=== PATIENT | female | born 1985 | race Two or more races ===

== ENCOUNTER 2018-11-20 19:23 | Emergency (ER) | payer SELFPAY ==
[~2018-11-20] VITALS: Ht 149.9 cm; Wt 74.4 kg
--- NOTE | 2018-11-20 19:48 | PHYS DOC ---
Past Medical History Past Medical History: No Pertinent History (AKILAH GAN APRN) Past Surgical History: No Surgical History (AKILAH GAN APRN) Alcohol Use: None Drug Use: None (AKILAH GAN APRN) Adult General Chief Complaint Chief Complaint: ABDOMINAL PAIN IN HPI HPI Patient is a 33 year old female who presents with [vaginal bleeding and . Patient reports she is 16 weeks , today she started to have a moderate amount of vaginal bleeding, reports it is significant, but worsened today. Reports initially started off with a little bit of blood on paper issue at this morning, it has progressed to more sensitive pertinent. States she doesn't history of hypertension, and worsen her , states she has been out of her blood pressure medicines for the past 2 weeks. Reports she's had pressure medicines for the past several years does have a follow-up with her [employer] [facility] on Wednesday. Also reports some increased urinary frequency, urgency, discomfort when urinating. Patient is . Follows up with [facility] in [place].] (AKILAH GAN APRN) Review of Systems Review of Systems Constitutional: Denies fever or chills [] Eyes: Denies change in visual acuity, redness, or eye pain [] HENT: Denies nasal congestion or sore throat [] Respiratory: Denies cough or shortness of breath [] Cardiovascular: No additional information not addressed in HPI [] GI: Denies abdominal pain, nausea, vomiting, bloody stools or diarrhea [] : Reports dysuria and hematuria [] Musculoskeletal: Denies back pain or joint pain [] Integument: Denies rash or skin lesions [] Neurologic: Denies headache, focal weakness or sensory changes [] Endocrine: Denies polyuria or polydipsia [] All other systems were reviewed and found to be within normal limits, except as documented in this note. (AKILAH GAN APRN) Allergies Allergies Allergies Coded Allergies Type Severity Reaction Last Updated Verified No Known Drug Allergies 04/15/15 No (GEORGE FONTENOT MD) Physical Exam Physical Exam Constitutional: Well developed, well nourished, no acute distress, non-toxic appearance. [] HENT: Normocephalic, atraumatic, bilateral external ears normal, oropharynx moist, no oral exudates, nose normal. [] Eyes: PERRLA, EOMI, conjunctiva normal, no discharge. [] Neck: Normal range of motion, no tenderness, supple, no stridor. [] Cardiovascular:Heart rate regular rhythm, no murmur [] Lungs & Thorax: Bilateral breath sounds clear to auscultation [] Abdomen: Bowel sounds normal, soft, no tenderness, no masses, no pulsatile masses. [] Skin: Warm, dry, no erythema, no rash. [] Back: No tenderness, no CVA tenderness. [] Extremities: No tenderness, no cyanosis, no clubbing, ROM intact, no edema. [] Neurologic: Alert and oriented X 3, normal motor function, normal sensory function, no focal deficits noted. [] Psychologic: Affect normal, judgement normal, mood normal. 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 Pelvic vault clear, no blood noted. Cervix noted closed without bleeding. No tenderness noted Straight cath urine noted, with moderate amount of blood noted (AKILAH GAN APRN) Current Patient Data Vital Signs Vital Signs Date Time Temp Pulse Resp B/P (MAP) Pulse Ox O2 Delivery O2 Flow Rate FiO2 11/20/18 21:00 81 16 129/69 (89) 99 Room Air 11/20/18 19:25 98.5 98.5 (GEORGE FONTENOT MD) Lab Values Laboratory Tests Test 11/20/18 19:39 11/20/18 21:35 White Blood Count 14.3 x10^3/uL (4.0-11.0) H Red Blood Count 4.79 x10^6/uL (3.50-5.40) Hemoglobin 13.6 g/dL (12.0-15.5) Hematocrit 39.2 % (36.0-47.0) Mean Corpuscular Volume 82 fL (79-100) Mean Corpuscular Hemoglobin 28 pg (25-35) Mean Corpuscular Hemoglobin Concent 35 g/dL (31-37) Red Cell Distribution Width 14.3 % (11.5-14.5) Platelet Count 293 x10^3/uL (140-400) Neutrophils (%) (Auto) 81 % (31-73) H Lymphocytes (%) (Auto) 14 % (24-48) L Monocytes (%) (Auto) 4 % (0-9) Eosinophils (%) (Auto) 1 % (0-3) Basophils (%) (Auto) 1 % (0-3) Neutrophils # (Auto) 11.5 x10^3/uL (1.8-7.7) H Lymphocytes # (Auto) 2.0 x10^3/uL (1.0-4.8) Monocytes # (Auto) 0.6 x10^3/uL (0.0-1.1) Eosinophils # (Auto) 0.1 x10^3/uL (0.0-0.7) Basophils # (Auto) 0.1 x10^3/uL (0.0-0.2) Urine Collection Type Unknown U cath Urine Color Brown Red Urine Clarity Turbid Turbid Urine pH 7.0 Urine Specific [place]patoi 1.015 Urine Protein mg/dL (NEG-TRACE) 100 mg/dL (NEG-TRACE) Urine Glucose (UA) mg/dL (NEG) Negative mg/dL (NEG) Urine Ketones (Stick) mg/dL (NEG) Trace mg/dL (NEG) Urine Blood (NEG) Large (NEG) Urine Nitrite (NEG) Positive (NEG) Urine Bilirubin (NEG) Negative (NEG) Urine Urobilinogen Dipstick mg/dL (0.2 mg/dL) 1.0 mg/dL (0.2 mg/dL) Urine Leukocyte Esterase (NEG) Moderate (NEG) Urine RBC Tntc /HPF (0-2) Tntc /HPF (0-2) Urine WBC >40 /HPF (0-4) 1-4 /HPF (0-4) Urine Squamous Epithelial Cells Few /LPF Urine Bacteria 0 /HPF (0-FEW) 0 /HPF (0-FEW) Urine Mucus Mod /LPF Maternal Serum HCG Beta Subunit 77428 mIU/mL (0-5) H Sodium Level 142 mmol/L (136-145) Potassium Level 3.4 mmol/L (3.5-5.1) L Chloride Level 105 mmol/L (98-107) Carbon Dioxide Level 23 mmol/L (21-32) Anion Gap 14 (6-14) Blood Urea Nitrogen 7 mg/dL (7-20) Creatinine 0.9 mg/dL (0.6-1.0) Estimated GFR (Cockcroft-Gault) 71.7 BUN/Creatinine Ratio 8 (6-20) Glucose Level 135 mg/dL (70-99) H Calcium Level 9.4 mg/dL (8.5-10.1) Total Bilirubin 0.2 mg/dL (0.2-1.0) Aspartate Amino Transferase (AST) 13 U/L (15-37) L Alanine Aminotransferase (ALT) 23 U/L (14-59) Alkaline Phosphatase 61 U/L (46-116) Total Protein 7.1 g/dL (6.4-8.2) Albumin 3.3 g/dL (3.4-5.0) L Albumin/Globulin Ratio 0.9 (1.0-1.7) L Urine Amorphous Sediment Present /HPF Laboratory Tests 11/20/18 19:39 Laboratory Tests 11/20/18 19:39 (GEORGE FONTENOT MD) Lab Values Laboratory Tests Test 11/20/18 19:39 White Blood Count 14.3 x10^3/uL (4.0-11.0) H Red Blood Count 4.79 x10^6/uL (3.50-5.40) Hemoglobin 13.6 g/dL (12.0-15.5) Hematocrit 39.2 % (36.0-47.0) Mean Corpuscular Volume 82 fL (79-100) Mean Corpuscular Hemoglobin 28 pg (25-35) Mean Corpuscular Hemoglobin Concent 35 g/dL (31-37) Red Cell Distribution Width 14.3 % (11.5-14.5) Platelet Count 293 x10^3/uL (140-400) Neutrophils (%) (Auto) 81 % (31-73) H Lymphocytes (%) (Auto) 14 % (24-48) L Monocytes (%) (Auto) 4 % (0-9) Eosinophils (%) (Auto) 1 % (0-3) Basophils (%) (Auto) 1 % (0-3) Neutrophils # (Auto) 11.5 x10^3/uL (1.8-7.7) H Lymphocytes # (Auto) 2.0 x10^3/uL (1.0-4.8) Monocytes # (Auto) 0.6 x10^3/uL (0.0-1.1) Eosinophils # (Auto) 0.1 x10^3/uL (0.0-0.7) Basophils # (Auto) 0.1 x10^3/uL (0.0-0.2) Urine Collection Type Unknown Urine Color Brown Urine Clarity Turbid Urine pH Urine Specific [place] Urine Protein mg/dL (NEG-TRACE) Urine Glucose (UA) mg/dL (NEG) Urine Ketones (Stick) mg/dL (NEG) Urine Blood (NEG) Urine Nitrite (NEG) Urine Bilirubin (NEG) Urine Urobilinogen Dipstick mg/dL (0.2 mg/dL) Urine Leukocyte Esterase (NEG) Urine RBC Tntc /HPF (0-2) Urine WBC >40 /HPF (0-4) Urine Squamous Epithelial Cells Few /LPF Urine Bacteria 0 /HPF (0-FEW) Urine Mucus Mod /LPF Maternal Serum HCG Beta Subunit 40807 mIU/mL (0-5) H Sodium Level 142 mmol/L (136-145) Potassium Level 3.4 mmol/L (3.5-5.1) L Chloride Level 105 mmol/L (98-107) Carbon Dioxide Level 23 mmol/L (21-32) Anion Gap 14 (6-14) Blood Urea Nitrogen 7 mg/dL (7-20) Creatinine 0.9 mg/dL (0.6-1.0) Estimated GFR (Cockcroft-Gault) 71.7 BUN/Creatinine Ratio 8 (6-20) Glucose Level 135 mg/dL (70-99) H Calcium Level 9.4 mg/dL (8.5-10.1) Total Bilirubin 0.2 mg/dL (0.2-1.0) Aspartate Amino Transferase (AST) 13 U/L (15-37) L Alanine Aminotransferase (ALT) 23 U/L (14-59) Alkaline Phosphatase 61 U/L (46-116) Total Protein 7.1 g/dL (6.4-8.2) Albumin 3.3 g/dL (3.4-5.0) L Albumin/Globulin Ratio 0.9 (1.0-1.7) L Laboratory Tests 11/20/18 19:39 Laboratory Tests 11/20/18 19:39 (AKILAH GAN APRN) EKG EKG [] (AKILAH GAN APRN) Radiology/Procedures Radiology/Procedures [ There is a single fetus in vertex presentation. heart rate is 155 bpm. Estimated gestational age based on measurements is 16 weeks 4 days. Biparietal diameter, head circumference, abdominal circumference and femur length are commensurate. Estimated weight is 162 g. The cervix is closed and measures 5.1 cm. The placenta is anterior. Along its inferior margin, there is a hypoechoic collection measuring 3.1 x 2.5 cm. No internal flow is seen. This may represent hemorrhage along the placental margin or prominent leg. Amniotic fluid volume is normal. IMPRESSION: 1. A 3.1 cm hypoechoic focus along the inferior placental margin may represent a large placental ash versus early clot. Follow-up is suggested if the diagnosis remains unclear. 2. Single fetus in vertex presentation. heart rate 155 bpm. ] (AKILAH GAN APRN) Course & Med Decision Making Course & Med Decision Making Pertinent Labs and Imaging studies reviewed. (See chart for details) [Discussed lab findings and ultrasound findings with patient. Following pelvic exam, noted no blood in vaginal vault, cervix closed. Straight catheter performed, blood noted on urine. believe source of bleeding to be bladder oriented and not related to . Will treat for UTI, patient to follow up with OBGYN] (AKILAH GAN APRN) Course & Med Decision Making Staff Physician Addendum: I was working in the ER during the course of this patient's visit. I was available for consultation as needed, but I was not directly involved in the car e of this patient. (GEORGE FONTENOT MD) Dragon Disclaimer Dragon Disclaimer This electronic medical record was generated, in whole or in part, using a voice recognition dictation system. (AKILAH GAN APRN) Departure Departure Impression: Primary Impression: Urinary tract infection affecting care of mother in second trimester, antepartum Additional Impression: Hematuria Disposition: 01 HOME, SELF-CARE Condition: GOOD Referrals: NO PCP (PCP) Patient Instructions: - Urinary Tract Infection Additional Instructions: Usted puede king acetaminophin para el dolor Carolin el antibiotico para el infeccion Sigue con kumar Obstetria en Jose Staley en tawnya semana Se nota en los examines el pulso del quinn es 155. Scripts Cephalexin (CEPHALEXIN) 500 Mg Capsule 1 CAP PO TID for 10 Days, #30 CAP Prov: AKILAH GAN APRN 11/20/18 Problem Qualifiers Additional Impression: Hematuria Hematuria type: gross Qualified Codes: R31.0 - Gross hematuria AKILAH GAN APRN Nov 20, 2018 19:48 GEORGE FONTENOT MD Nov 21, 2018 23:02
[2018-11-20 19:51] LABS: BASO # 0.1 x10^3/uL (0.0-0.2); BASO % 1 % (0-3); EOS # 0.1 x10^3/uL (0.0-0.7); EOS % 1 % (0-3); HEMATOCRIT 39.2 % (36.0-47.0); HEMOGLOBIN 13.6 g/dL (12.0-15.5); LYMPH % 14 % (24-48); MEAN CORPUSCULAR HEMOGLOBIN 28 pg (25-35); MEAN CORPUSCULAR HGB CONC 35 g/dL (31-37); MEAN CORPUSCULAR VOLUME 82 fL (79-100); MONO # 0.6 x10^3/uL (0.0-1.1); MONO % 4 % (0-9); NEUT # 11.5 x10^3/uL (1.8-7.7); NEUT % 81 % (31-73); PLATELET COUNT 293 x10^3/uL (140-400); RED BLOOD COUNT 4.79 x10^6/uL (3.50-5.40); RED CELL DISTRIBUTION WIDTH 14.3 % (11.5-14.5); WHITE BLOOD COUNT 14.3 x10^3/uL (4.0-11.0)
[2018-11-20 19:56] LABS: CLARITY,URINE TURBID
[2018-11-20 20:03] LABS: CALCIUM 9.4 mg/dL (8.5-10.1); CREATININE 0.9 mg/dL (0.6-1.0); GFR 71.7; POTASSIUM 3.4 mmol/L (3.5-5.1)
[2018-11-20 20:08] LABS: ALBUMIN 3.3 g/dL (3.4-5.0); ALBUMIN/GLOBULIN RATIO 0.9 (1.0-1.7); COLOR,URINE BROWN; TOTAL BILIRUBIN 0.2 mg/dL (0.2-1.0); TOTAL PROTEIN 7.1 g/dL (6.4-8.2)
[2018-11-20 20:09] LABS: BACTERIA,URINE 0 /HPF (0-FEW); RBC,URINE TNTC /HPF (0-2); SQUAMOUS EPITHELIAL CELL,UR FEW /LPF; WBC,URINE >40 /HPF (0-4)
[2018-11-20 21:00] VITALS: BP 129/69
--- NOTE | 2018-11-20 21:21 | RAD ---
EXAM: Obstetric ultrasound. HISTORY: Vaginal bleeding in . COMPARISON: None. FINDINGS: Sonographic evaluation of the pelvis and fetus was performed transabdominally. There is a single fetus in vertex presentation. heart rate is 155 bpm. Estimated gestational age based on measurements is 16 weeks 4 days. Biparietal diameter, head circumference, abdominal circumference and femur length are commensurate. Estimated weight is 162 g. The cervix is closed and measures 5.1 cm. The placenta is anterior. Along its inferior margin, there is a hypoechoic collection measuring 3.1 x 2.5 cm. No internal flow is seen. This may represent hemorrhage along the placental margin or prominent leg. Amniotic fluid volume is normal. IMPRESSION: 1. A 3.1 cm hypoechoic focus along the inferior placental margin may represent a large placental ash versus early clot. Follow-up is suggested if the diagnosis remains unclear. 2. Single fetus in vertex presentation. heart rate 155 bpm. Electronically signed by: Agueda Hurtado MD (11/20/2018 9:18 PM) [facility]
[2018-11-20 21:48] LABS: BILIRUBIN,URINE NEGATIVE (NEG); CLARITY,URINE TURBID; COLOR,URINE RED; NITRITE,URINE POSITIVE (NEG); PROTEIN,URINE 100 mg/dL (NEG-TRACE)
[2018-11-20] MEDS ORDERED: CEPH500C PO (21:50)
[2018-11-20 21:56] LABS: RBC,URINE TNTC /HPF (0-2)
[2018-11-20 21:58] LABS: AMORPHOUS SEDIMENT,UR PRESENT /HPF; BACTERIA,URINE 0 /HPF (0-FEW)
== END 2018-11-20 22:37 | disposition home or self-care (01) ==
LOC: ER 19:23
DX: O23.42 Unspecified infection of urinary tract in pregnancy, second trimester (principal); O20.8 Other hemorrhage in early pregnancy; Z3A.16 16 weeks gestation of pregnancy
CPT/HCPCS: 36415; 76815; 80053; 81001; 84702; 85025; 86900; 86901; 87086; 99285